=== PATIENT | male | born 1980 | race Caucasian/White ===

== ENCOUNTER 2018-07-29 10:36 | Emergency (ER) | payer MEDICAID, SELFPAY ==
[2018-07-29 10:37] VITALS: BP 112/73; PULSE 89; RESP 16; TEMP 37.6; O2SAT 97; BMI 24.6
--- NOTE | 2018-07-29 10:51 | US_ITS ---
STUDY: SCROTUM ULTRASOUND REASON FOR EXAM: Male, 37 years old. Right testicular pain and swelling. TECHNIQUE: Ultrasound evaluation of the scrotum was performed with color Doppler and static holly-scale imaging. COMPARISON: None. FINDINGS: RIGHT TESTICLE INTRATESTICULAR: There is a normal size of the right testicle. The right testicle measures 4.7 cm x 3.1 cm x 2.2 cm. There is a homogenous echotexture. There is normal arterial and normal venous vascularity. There is no demonstrated right testicular mass or cyst. EXTRATESTICULAR: The epididymis is enlarged. The epididymis head measures 1 cm x 0.9 cm x 1.2 cm. There is increased (hyperemic) vascularity of the epididymis. There is no demonstrated epididymal cystic structure. There is no demonstrated hydrocele. There is no demonstrated varicocele. There is no demonstrated extratesticular mass or cyst. LEFT TESTICLE INTRATESTICULAR: There is a normal size of the left testicle. The left testicle measures 4.9 cm x 2.2 signed by 2.6 cm. There is a homogenous echotexture. There is normal arterial and normal venous vascularity. There is no demonstrated left testicular mass or cyst. EXTRATESTICULAR: The epididymis is normal in size. The epididymis head measures 0.9 cm x 1.6 cm x 1.1 cm. There is normal vascularity of the epididymis. There is a well-defined cystic structure within the epididymis, without internal echoes, consistent with an epididymal cyst. This measures 4 mm x 4 mm x 4 mm. There is no demonstrated hydrocele. There is no demonstrated varicocele. There is no demonstrated extratesticular mass or cyst. US/Testicular with Arterial Flow IMPRESSION: Increased vascularity and heterogeneous appearance of the right epididymis suggestive of epididymitis. Small left epididymal cyst. Electronically Signed: Jae Kam, at 12:35 EDT , Service support ,
--- NOTE | 2018-07-29 11:13 | ED.VISSUMM ---
- ER Visit Summary Date of Service: 07/29/18 Chief Complaint: [Right testicle pain and swelling History of Present Illness: The patient is a 37 M who is had 2 days of right testicle pain and swelling. He states the pain radiates up into his abdomen. He denies any penile drainage or discharge. He denies dysuria or hematuria. No fevers. He has no history of any scrotal or testicular surgeries in the past. Physical Examination: Vitals are reviewed. Heart is regular rate and rhythm. Lungs clear. Abdomen is soft with suprapubic tenderness to palpation. exam reveals tenderness to the right testicle diffusely. No masses are felt. He has diffuse swelling of the right testicle as well. His scrotum is nonerythematous. Test Results: Urinalysis normal. Ultrasound reveals epididymitis on the right Emergency Department Course and Treatment: Patient was given [place] and Toradol here. I will send him home with naproxen and 10 days of Levaquin. He will follow-up with urology Treatment Plan: [] Disposition: Discharge Impression: Epididymitis, right This note was generated with [employer] dictation software. It may contain incorrect words, spelling, and punctuation that were not noted in review of the chart prior to signing ED Disposition - Plan for ED Patient: Referrals: Care Physician,No Primary [Primary Care Provider] -
[2018-07-29] MEDS: HYDROcodone Bitartrate/Apap 5/325 Tablet PO (11:32)
[2018-07-29 11:57] LABS: Bacteria 0 SEEN /hpf (None Seen); Mucous, Urine 0 SEEN /hpf (<or=2+); Red Blood Cells-Urine 0 SEEN /hpf (0-5); White Blood Cells 0 SEEN /hpf (0-5)
[2018-07-29 12:00] LABS: Color, Urine Yellow (Yellow); Glucose, Dipstick Normal (Normal); Ketone-Dipstick Negative (Negative); Leukocyte Esterase-Dipstick Negative /ul (Negative); Nitrite-Dipstick Negative (Negative); Occult Blood-Urine Negative /ul (Negative); Protein-Dipstick Negative (Negative); Urine Bilirubin Dipstick Negative (Negative); Urine Clarity Sl. Cloudy (Clear); Urine Urobilinogen Normal (Normal)
[2018-07-29 12:08] LABS: Squamous Epithelial Cells - UA 0-5 SEEN /hpf (0-5)
--- NOTE | 2018-07-29 12:41 | ED.DEP ---
ED Disposition - Plan for ED Patient: Disposition: Home or Assisted Living Instructions: ED Epididymitis Prescriptions: levoFLOXacin tablet [Levaquin] 500 mg PO DAILY #10 tab Naproxen [Naprosyn] 500 mg PO BID PRN #20 tab Referrals: Care Physician,No Primary [Primary Care Provider] -
[2018-07-29] MEDS: Ketorolac 60 MG/2 ML Vial IM (12:42)
[2018-07-29 13:17] VITALS: BP 107/63; PULSE 82; RESP 17; O2SAT 97
--- NOTE | 2018-07-29 13:18 | ED.RN ---
DISCHARGE INSTRUCTIONS GIVEN TO AND REVIEWED WITH PATIENT, PATIENT DENIES QUESTIONS OR CONCERNS AND VOICES UNDERSTANDING OF DISCHARGE INSTRUCTIONS. PT AMBULATES OUT OF ROOM WITHOUT DIFFICULTY.
== END 2018-07-29 13:18 | disposition home or self-care (01) ==
PROVIDERS: Emergency Provider Emergency Medicine
DX: N45.1 Epididymitis (principal)
CPT/HCPCS: 76870; 81001; 93976; 96372; 99283

== ENCOUNTER 2018-12-12 13:19 | Emergency (ER) | payer MEDICAID, SELFPAY ==
[2018-12-12 13:19] VITALS: BP 123/87; PULSE 63; RESP 16; TEMP 36.2
[2018-12-12 13:20] VITALS: BP 123/87; PULSE 63; RESP 16; TEMP 36.2; BMI 24.6
--- NOTE | 2018-12-12 14:03 | CT_ITS ---
STUDY: CT ABDOMEN AND PELVIS WITH CONTRAST REASON FOR EXAM: Male, 38 years old. Rectal pain with discharge for one week RADIATION DOSAGE (If Supplied By Facility): CTDIvol = ( 12.68 ) mGy, DLP = ( 1151.49 ) mGycm TECHNIQUE: Transaxial images were obtained from the dome of the diaphragm to the symphysis pubis without oral contrast. IV Isovue 300 100 was administered. Sagittal and coronal images were reconstructed. Individualized dose optimization techniques were used for this CT. COMPARISON: None. FINDINGS: The visualized lung bases are unremarkable. There is a lobular fluid collection adjacent to the right side of the heart (coronal image 42) likely representing pericardial cyst, without mass effect or wall thickening. The visualized portions of the heart are within normal limits. Normal liver. Normal gallbladder and extrahepatic biliary system. Normal spleen. Normal pancreas. Normal bilateral adrenal glands. Normal right kidney. There is a simple cyst of the left kidney measuring 1.6 cm. Normal visualized stomach. Normal small intestine. Normal colon. No perirectal induration or fluid collection. The ischio rectal fat is clear. No focal fluid collection. The appendix is visualized and appears normal. Normal abdominal aorta. Normal inferior vena cava. Normal retroperitoneum. Normal urinary bladder. Normal abdominal wall. Normal osseous structures. CT/Abdomen/Pelvis W IV Cont ONLY IMPRESSION: 1. No acute inflammatory process or focal fluid collection. 2. Pericardial cyst. Electronically Signed: Leonel Claire MD ([place]) at 14:59 EDT , Service support ,
--- NOTE | 2018-12-12 14:04 | ED.VIS.GEN ---
History of Present Illness Chief Complaint: Other, Pain/Inj Detail of Chief Complaint: Rectal pain Informant: Patient Onset: Weeks Context: Gradual Onset Current Severity: Moderate Maximum Severity: Moderate Narrative: Patient presents with a one-week history of increasing rectal pain. He has swelling around the anus with some discharge. He states he found some old antibiotics at home and took 3 days of those. Following that he started having mucus and pus like discharge with bowel movement. He states he has somewhat swelling it is difficult to have a bowel movement. He was seen at the [facility] urgent care prior to coming to the emergency room. They performed an exam and are referring him to surgery for biopsy and further testing. 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 He was given prescriptions for Augmentin as well as hydrocortisone cream but has not picked them up from the pharmacy just yet. He does have a history of chlamydia and HPV in the past. He denies rectal intercourse. He denies history of prostatitis. Past Medical History - Allergies and Home Meds Allergies/Adverse Reactions: Allergies No Known Allergies Allergy (Verified 07/29/18 10:39) Primary Care Physician: Care Physician,No Primary [Primary Care Provider] - Prior records reviewed: Yes Past Medical History: - - Reviewed Smoking Status: Never smoker Review of Systems General: Denies: Chills, Fever Eyes: Denies: Visual changes - bilaterally ENT: Denies: Bilateral ear pain Cardiovascular: Denies: Chest pain Respiratory: Denies: Dyspnea Gastrointestinal: Reports: Constipation. Denies: Abdominal pain Genitourinary: Denies: Dysuria Skin: Denies: Rash Neurological: Denies: Headache Endocrine: Denies: Polyuria, Polydipsia Allergy: Denies: Uticaria Physical Exam Vital Signs/Narrative: Vital Signs Temp Pulse Resp BP 12/12/18 13:20 97.2 F L 63 16 123/87 H 12/12/18 13:19 97.2 F L 63 16 123/87 H Inital Vital Signs reviewed: Yes General: Well nourished, Well developed Head: Normocephalic ENT: Moist mucous membranes Neck: Supple Cardiovascular: Regular rate, Regular rhythm Respiratory: No distress, CTA bilaterally Abdomen: Soft, Nontender : - - Patient just had a rectal examination performed at urgent care prior to arriving to the emergency room. He did pictures on his phone. He has swelling around both lateral sides of the rectum. It does not appear there are any vesicles or open lesions. Neurological: Alert, Oriented x3 Psychological: Normal affect Diagnostic/Tx/Re-eval Impressions Abdomen/Pelvis CT 12/12/18 14:03 IMPRESSION: 1. No acute inflammatory process or focal fluid collection. 2. Pericardial cyst. Electronically Signed: Leonel Claire MD ([place]) at 14:59 EDT , Service support , 12/12/18 14:03 CT Pel [Abdomen/Pelvis W IV Cont ONLY] [CT] Stat Laboratory Results 12/12/18 12/12/18 14:15 14:15 WBC 8.3 RBC 5.58 Hgb 17.2 H Hct 50.1 MCV 89.8 MCH 30.8 MCHC 34.3 RDW Std Deviation 41.4 RDW Coeff of Saqib 12.6 Plt Count 268 MPV 8.0 Immature Gran % (Auto) 0.200 Neut % (Auto) 63.9 Lymph % (Auto) 27.3 [place]ball % (Auto) 6.5 Eos % (Auto) 1.6 Baso % (Auto) 0.5 Absolute Neuts (auto) 5.3 Absolute Lymphs (auto) 2.27 Nucleated RBC % 0 Sodium 139 Potassium 4.2 Chloride 103 Carbon Dioxide 31.0 Anion Gap 5 BUN 22 H Creatinine 1.16 Estim Creat Clear Calc 102.19 Est GFR (MDRD) Af Amer 90 Est GFR (MDRD) Non-Af 74 BUN/Creatinine Ratio 19.0 Glucose 115 H Calcium 9.4 - Medical Decision Making Patient was given Toradol for pain. CT scan reveals no evidence of perirectal or perianal abscess. Test results were discussed with Dr. Greenfield. He will see him in the office this week. He was already written prescriptions from the urgent care. ED Disposition - Plan for ED Patient: Disposition: Home or Assisted Living Diagnosis: Rectal abnormality Referrals: Raheem Greenfield MD [STAFF PHYSICIAN] - 3-5 Days
[2018-12-12] MEDS: Ketorolac 30 MG/ML Syringe IV (14:18)
[2018-12-12] MEDS: 0.9% Normal Saline 1,000 ML 150 ML IV (14:18)
[2018-12-12 14:22] LABS: Absolute Lymphocyte Count 2.27 X10^3/uL (0.83-4.51); Absolute Neutrophil Count 5.3 X10^3/uL (2.0-7.7); Basophil# 0.04 X10^3/uL; Basophil% 0.5 % (0-1); Eosinophil# 0.13 X10^3/uL; Eosinophils% 1.6 % (0-5); Hematocrit 50.1 % (40-54); Hemoglobin 17.2 g/dL (13.0-16.5); Lymphocyte # 2.27 X10^3/ul (4.0); Lymphocyte % 27.3 % (19-41); Mean Corp Hgb Conc 34.3 g/dL (32-36); Mean Corpuscular Hgb 30.8 pg (27.0-32.0); Mean Corpuscular Volume 89.8 fL (80-94); Monocyte# 0.54 X10^3/uL; Monocyte% 6.5 % (0-10); NRBC Flagged by Analyzer 0 % (0-5); Neutrophil % 63.9 % (47-70); Platelet Count 268 K/mm3 (150-450); RBC Distribution Width CV 12.6 % (11.6-14.6); RBC Distribution Width SD 41.4 fl (35.1-43.9); Red Blood Count 5.58 M/mm3 (4.6-6.2); White Blood Count 8.3 K/mm3 (4.4-11.0)
[2018-12-12 14:35] LABS: Anion Gap 5 (5-15); BUN 22 mg/dL (7-18); Calcium,Total 9.4 mg/dL (8.5-10.1); Chloride 103 mmol/L (98-107); Creatinine, Serum 1.16 mg/dL (0.70-1.30); EST Glomerular Filtration Rate 74 mL/min (>60); Est Glom Filt Rate - Afr Amer 90 mL/min (>60); Estimated Creatinine Clearance 102.19 ml/min; Glucose 115 mg/dL (74-106); Potassium 4.2 mmol/L (3.5-5.1); Sodium Level 139 mmol/L (136-145)
[2018-12-12 15:23] VITALS: BP 122/78; PULSE 78; RESP 16; O2SAT 98
== END 2018-12-12 15:20 | disposition home or self-care (01) ==
PROVIDERS: Emergency Provider Emergency Medicine
DX: K62.89 Other specified diseases of anus and rectum (principal); K59.00 Constipation, unspecified; I31.8 Other specified diseases of pericardium; Z86.19 Personal history of other infectious and parasitic diseases
CPT/HCPCS: 74177; 80048; 85025; 96361; 96374; 99283; J7030; Q9967

== ENCOUNTER 2019-09-24 14:01 | Emergency (ER) | payer MEDICAID, SELFPAY ==
[2019-09-24 14:03] VITALS: BP 64/45; PULSE 80; RESP 24; TEMP 35.5; O2SAT 98; BMI 23.7
[2019-09-24 14:10] VITALS: BP 121/92; PULSE 87; RESP 16; O2SAT 99
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
[2019-09-24 15:05] VITALS: BP 127/87; PULSE 70; RESP 18; O2SAT 100
[2019-09-24] MEDS: Morphine 4 MG/ML Syringe IV (15:05)
[2019-09-24 15:12] LABS: Absolute Lymphocyte Count 1.95 X10^3/uL (0.83-4.51); Absolute Neutrophil Count 7.2 X10^3/uL (2.0-7.7); Basophil# 0.03 X10^3/uL; Basophil% 0.3 % (0-1); Eosinophil# 0.19 X10^3/uL; Eosinophils% 1.8 % (0-5); Hematocrit 41.2 % (40-54); Hemoglobin 14.2 g/dL (13.0-16.5); Lymphocyte # 1.95 X10^3/ul (4.0); Lymphocyte % 18.9 % (19-41); Mean Corp Hgb Conc 34.5 g/dL (32-36); Mean Corpuscular Hgb 30.4 pg (27.0-32.0); Mean Corpuscular Volume 88.2 fL (80-94); Mean Platelet Vol. 8.3 fl (6.2-12.0); Monocyte# 0.93 X10^3/uL; NRBC Flagged by Analyzer 0 % (0-5); Neutrophil # 7.15 X10^3/uL (2.7-7.7); Neutrophil % 69.4 % (47-70); Platelet Count 274 K/mm3 (150-450); RBC Distribution Width CV 12.4 % (11.6-14.6); RBC Distribution Width SD 39.5 fl (35.1-43.9); Red Blood Count 4.67 M/mm3 (4.6-6.2); White Blood Count 10.3 K/mm3 (4.4-11.0)
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
[2019-09-24 16:25] LABS: Anion Gap 2 (5-15); BUN 22 mg/dL (7-18); BUN/Creat Ratio 20.8 RATIO (10-20); Chloride 109 mmol/L (98-107); Creatinine, Serum 1.06 mg/dL (0.70-1.30); EST Glomerular Filtration Rate 82 mL/min (>60); Est Glom Filt Rate - Afr Amer 100 mL/min (>60); Estimated Creatinine Clearance 111.83 ml/min; Glucose 119 mg/dL (74-106); Potassium 4.3 mmol/L (3.5-5.1); Sodium Level 139 mmol/L (136-145)
[2019-09-24] MEDS: HYDROcodone Bitartrate/Apap 5/325 Tablet PO (17:18)
[2019-09-24 17:24] VITALS: BP 124/75; PULSE 82; RESP 22
[2019-09-24 17:32] VITALS: BP 124/75; PULSE 82; RESP 22
== END 2019-09-24 17:54 | disposition home or self-care (01) ==
PROVIDERS: Emergency Provider Emergency Medicine; PCP Family Medicine
DX: S42.022A Displaced fracture of shaft of left clavicle, initial encounter for closed fracture (principal); S22.42XA Multiple fractures of ribs, left side, initial encounter for closed fracture; S00.81XA Abrasion of other part of head, initial encounter; S16.1XXA Strain of muscle, fascia and tendon at neck level, initial encounter; V86.56XA Driver of dirt bike or motor/cross bike injured in nontraffic accident, initial encounter; Y93.9 Activity, unspecified; Y92.9 Unspecified place or not applicable
CPT/HCPCS: 70450; 71045; 72125; 72170; 73030; 80048; 85025; 96374; 99285; A4216